=== PATIENT | female | born 1985 | race Two or more races ===

== ENCOUNTER 2021-06-02 08:00 | Outpatient (CLI) | payer OTHER ==
[2021-06-03] MEDS ORDERED: PREDNISONE5 M1 PO (13:25)
[2021-06-03] MEDS ORDERED: JANTOVEN2.5 MG PO (13:25)
== END 2021-06-02 08:30 | disposition home or self-care (01) ==
LOC: PPH VACUNA 08:00
PROVIDERS: ATTEND Emergency Medicine Pediatric Emergency Medicine
DX: Z23 Encounter for immunization (principal)

== ENCOUNTER 2021-06-03 13:03 | Emergency (ER) | payer OTHER ==
[~2021-06-03] VITALS: Ht 167.6 cm; Wt 63.5 kg
[2021-06-03] MEDS ORDERED: JANTOVEN2.5 MG PO (13:25)
[2021-06-03] MEDS ORDERED: PREDNISONE5 M1 PO (13:25)
== END 2021-06-03 14:59 | disposition home or self-care (01) ==
LOC: ER 13:03
DX: R53.81 Other malaise (principal); R11.10 Vomiting, unspecified

== ENCOUNTER → 2021-08-19 | Outpatient (CLI) | payer OTHER ==
[~2021-08-19] MED LIST: JANTOVEN2.5 MG PO; PREDNISONE5 M1 PO
== END | disposition home or self-care (01) ==
LOC: MAMO-SONO 11:19
PROVIDERS: ATTEND Obstetrics & Gynecology
DX: N64.59 Other signs and symptoms in breast (principal); Z12.31 Encounter for screening mammogram for malignant neoplasm of breast; Z85.3 Personal history of malignant neoplasm of breast; N63.21 Unspecified lump in the left breast, upper outer quadrant; N63.12 Unspecified lump in the right breast, upper inner quadrant; D49.3 Neoplasm of unspecified behavior of breast

== ENCOUNTER 2021-08-25 13:03 | Outpatient (CLI) | payer OTHER | END 2021-08-25 13:07 | disposition home or self-care (01) | LOC: LAB 13:03 | PROVIDERS: ATTEND Obstetrics & Gynecology | DX: D80.9 Immunodeficiency with predominantly antibody defects, unspecified (principal); E03.9 Hypothyroidism, unspecified; N39.0 Urinary tract infection, site not specified ==

== ENCOUNTER 2021-10-06 15:35 | Outpatient (CLI) | payer OTHER | END 2021-10-06 15:40 | disposition home or self-care (01) | LOC: LAB 15:35 | PROVIDERS: ATTEND Legal Medicine | DX: D64.9 Anemia, unspecified (principal); N39.9 Disorder of urinary system, unspecified; D68.9 Coagulation defect, unspecified; I10 Essential (primary) hypertension; E03.8 Other specified hypothyroidism; N91.2 Amenorrhea, unspecified ==

== ENCOUNTER 2021-11-10 06:00 | Day surgery (SDC) | payer OTHER | END 2021-11-10 22:20 | disposition home or self-care (01) | LOC: CIR.AMB 06:00 → ADM 12:00 → CIR.AMB 12:00 | PROVIDERS: ATTEND Obstetrics & Gynecology | DX: Z30.432 Encounter for removal of intrauterine contraceptive device (principal); N93.9 Abnormal uterine and vaginal bleeding, unspecified; Z86.718 Personal history of other venous thrombosis and embolism; Z88.8 Allergy status to other drugs, medicaments and biological substances ==

== ENCOUNTER 2022-02-12 21:26 | Emergency (ER) | payer OTHER ==
[~2022-02-12] VITALS: Ht 167.6 cm; Wt 55.3 kg
[2022-02-12] MEDS ORDERED: ADVIL (21:55)
[2022-02-13] MEDS ORDERED: BACTRIM DS TAB1 EACH PO (02:08)
== END 2022-02-13 02:21 | disposition home or self-care (01) ==
LOC: ER 21:26
DX: N39.0 Urinary tract infection, site not specified (principal); R10.31 Right lower quadrant pain; Z88.5 Allergy status to narcotic agent; Z88.8 Allergy status to other drugs, medicaments and biological substances
CPT/HCPCS: 36415; 74177; Q9965

== ENCOUNTER 2022-05-10 08:00 | Outpatient (CLI) | payer OTHER ==
[~2022-05-10 08:00] MED LIST changes: +ADVIL; +BACTRIM DS TAB1 EACH PO
== END 2022-05-10 08:05 | disposition home or self-care (01) ==
LOC: PPH VACUNA 08:00
PROVIDERS: ATTEND Emergency Medicine Pediatric Emergency Medicine
DX: Z23 Encounter for immunization (principal)